=== PATIENT | male | born 1970 | race Caucasian/White ===

== ENCOUNTER 2021-02-09 12:08 | Outpatient (CLI) | payer OTHER ==
[2021-02-10 11:19] LABS: SARS-CoV-2 PCR by NAA Not Detected (NotDetected)
== END 2021-02-09 12:09 | disposition home or self-care (01) ==
LOC: CSHLAB 12:08
PROVIDERS: ATTEND Internal Medicine Gastroenterology
DX: Z20.822 Contact with and (suspected) exposure to COVID-19 (principal)
CPT/HCPCS: U0003; U0005

== ENCOUNTER 2021-02-14 07:18 | Day surgery (SDC) | payer OTHER ==
[2021-02-08 14:04] VITALS: BMI 22.8
[2021-02-14] MEDS ORDERED: Lidocaine 1% MPF 2 ML VIAL ONE (08:12)
[2021-02-14] MEDS ORDERED: PROPOFOL 40 ML ONE (09:09)
[2021-02-14] MEDS ORDERED: Lidocaine 1% PF 5 ML VIAL ONE (09:09)
== END 2021-02-14 10:35 | disposition home or self-care (01) ==
LOC: CSHSDC 07:18
PROVIDERS: ATTEND Internal Medicine Gastroenterology
PROC: 0DBN8ZZ Excision of Sigmoid Colon, Via Natural or Artificial Opening Endoscopic (ICD-10-PCS; principal; 2021-02-14)
PROC: 0DBL8ZZ Excision of Transverse Colon, Via Natural or Artificial Opening Endoscopic (ICD-10-PCS; principal; 2021-02-14)
DX: Z12.11 Encounter for screening for malignant neoplasm of colon (principal); K63.5 Polyp of colon; K64.9 Unspecified hemorrhoids; I10 Essential (primary) hypertension; E11.9 Type 2 diabetes mellitus without complications; E78.5 Hyperlipidemia, unspecified; F41.9 Anxiety disorder, unspecified
CPT/HCPCS: 36416; 88305; J2704